=== PATIENT | male | born 1980 | race Caucasian/White ===

== ENCOUNTER 2018-02-12 06:57 | Emergency (ER) | payer OTHER ==
[~2018-02-12] VITALS: Ht 180.3 cm; Wt 95.3 kg
[2018-02-12] MEDS ORDERED: CLEOCIN HCL150 MG PO ×2 (07:09→07:19)
[2018-02-12] MEDS ORDERED: KEFLEX500 M1 PO (07:16)
[2018-02-12] MEDS ORDERED: ULTRAM 50MG TAB50 MG PO (07:16)
[2018-02-12 07:35] VITALS: BP 140/101
== END 2018-02-12 07:36 | disposition home or self-care (01) ==
LOC: M.ERS 06:57
DX: K04.7 Periapical abscess without sinus (principal); F17.200 Nicotine dependence, unspecified, uncomplicated; Z98.890 Other specified postprocedural states; Z88.0 Allergy status to penicillin